=== PATIENT | male | born 1960 | race Caucasian/White ===

== ENCOUNTER 2021-05-05 16:33 | Emergency (ER) | payer OTHER ==
[2021-05-05 17:18] LABS: Absolute Lymphocytes (CBC) 2.2 K/uL (0.7-4.9); Hematocrit 43.4 % (39.6-49.0); Lymphocytes % 23.1 % (15.3-44.8); RBC Red Blood Cell Count 4.56 M/uL (4.33-5.43)
[2021-05-05 17:30] LABS: BUN Blood Urea Nitrogen 18 mg/dL (7-18); Bicarbonate 30 mmol/L (21-32); Glucose Level 104 mg/dL (74-106); Magnesium 2.2 mg/dL (1.8-2.4); NT PRO-BNP 40 pg/mL (<125); Potassium 3.6 mmol/L (3.5-5.1); Sodium Level 141 mmol/L (136-145); Troponin (Emerg Dept Use Only) < 0.02 ng/mL (0.0-0.045)
--- NOTE | 2021-05-05 17:37 | RAD REPORT ---
EXAM DESCRIPTION: John Single View05/05/2021 5:23 pm CLINICAL HISTORY: Palpitations COMPARISON: 2011 FINDINGS: The lungs appear clear of acute infiltrate. The heart is normal size IMPRESSION: No acute abnormalities displayed
--- NOTE | 2021-05-05 17:59 | ER ---
Nurse's Notes [facility] Name: Ponce Morgan Age: 61 yrs Sex: Male : 1960 Arrival Date: 05/05/2021 Time: 16:34 Bed 13 Private MD: Diagnosis: Palpitations Presentation: 05/05 16:40 Chief complaint: EMS states: pt feeling a fluttering in chest while sitting at work. 6 complains of no pain or sob. 16:40 Method Of Arrival: EMS: [facility] 16:40 Coronavirus screen: Vaccine status: Patient reports receiving the 1st dose of the Covid jh6 vaccine. Client denies travel out of the [place] in the last 14 days. At this time, the client does not indicate any symptoms associated with coronavirus-19. Ebola Screen: Patient negative for fever greater than or equal to 101.5 degrees Fahrenheit, and additional compatible Ebola Virus Disease symptoms Patient denies exposure to infectious person. Patient denies travel to an Ebola-affected area in the 21 days before illness onset. No symptoms or risks identified at this time. Initial Sepsis Screen: Does the patient meet any 2 criteria? No. Patient's initial sepsis screen is negative. Does the patient have a suspected source of infection? No. Patient's initial sepsis screen is negative. Risk Assessment: Do you want to hurt yourself or someone else? Patient reports no desire to harm self or others. Onset of symptoms was May 05, 2021. 16:40 Acuity: SHANTELL 2 [facility] Triage Assessment: 17:04 General: Appears in no apparent distress. comfortable, well groomed, well developed, [facility] well nourished, Behavior is calm, cooperative. Pain: Denies pain. Neuro: No deficits noted. Cardiovascular: Reports palpitations. Respiratory: No deficits noted. Historical: - Allergies: 17:06 No Known Allergies; [facility] - PMHx: 17:06 Angina pectoris; [facility] - Immunization history:: Adult Immunizations up to date. - Family history:: not pertinent. - Social history:: Smoking status: Patient denies any tobacco usage or history of. - Hospitalizations: : No recent hospitalization is reported. Screenin:05 Abuse screen: Denies threats or abuse. Nutritional screening: No deficits noted. [facility] Tuberculosis screening: No symptoms or risk factors identified. Fall Risk None identified. Assessment: 17:04 General: Appears in no apparent distress. comfortable, Behavior is calm, cooperative. jh6 Pain: Denies pain. Cardiovascular: Reports palpitations. 18:00 Reassessment: Patient and/or family updated on plan of care and expected duration. Pain jh6 level reassessed. Patient is alert, oriented x 3, equal unlabored respirations, skin warm/dry/pink. 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 pt given copies of ekg from [place] and copies of labs collected today. pt has no complaints at this time. Patient denies pain at this time. Vital Signs: 16:40 BP 124 / 62; Pulse 70; Resp 17; Temp 97.8(O); Pulse Ox 100% ; Weight 106.59 kg; Height jh6 6 ft. 0 in. (182.88 cm); Pain 0/10; 18:00 BP 120 / 65; Pulse 64; Resp 18; Temp 97.7(O); Pulse Ox 100% ; Pain 0/10; jh6 16:40 Body Mass Index 31.87 (106.59 kg, 182.88 cm) jh6 Vitals: 18:00 Cardiac Rhythm Assessment Regular Sinus rhythm. jh6 ED Course: 16:34 Patient arrived in ED. ds1 16:36 Azucena Peoples, RN is Primary Nurse. jh6 16:40 Vasyl Merida MD is Attending Physician. rn 17:04 Triage completed. jh6 17:04 Arm band placed on right wrist. jh6 17:05 No provider procedures requiring assistance completed. Initial lab(s) drawn, EKG done, jh6 by ED staff, reviewed by Vasyl Merida MD. Inserted saline lock: 20 gauge in right antecubital area, using aseptic technique. 17:23 XRAY Chest (1 view) In Process Unspecified. EDMS 17:27 Bed in low position. Call light in reach. Side rails up X 1. jh6 17:58 Anette Espinoza MD is Referral Physician. rn 18:20 IV discontinued, intact, bleeding controlled, No redness/swelling at site. Pressure jh6 dressing applied. Administered Medications: No medications were administered Outcome: 17:58 Discharge ordered by . rn 18:33 Discharged to home ambulatory. jh6 18:33 Condition: improved 18:33 Discharge instructions given to patient, Instructed on discharge instructions, follow up and referral plans. Demonstrated understanding of instructions, follow-up care. 18:37 Patient left the ED. jh6 Signatures: Dispatcher [employer] JULIÁN Brar, Emily dsVasyl Powell MD MD rn Hastedt, Jennifer, RN RN jh6
--- NOTE | 2021-05-05 17:59 | EDPHYS ---
Physician Documentation [facility] Name: Ponce Morgan Age: 61 yrs Sex: Male : 1960 Arrival Date: 05/05/2021 Time: 16:34 Bed 13 Private MD: ED Physician Vasyl Merida HPI: 05/05 16:49 This 61 yrs old Male presents to ER via Unassigned with complaints of Palpitations. rn 16:49 The patient presents with a history of irregular heart beat. Context: The symptoms rn occur at rest. Onset: The symptoms/episode began/occurred today. Duration: The patient or guardian reports multiple episodes, that are intermittent. Modifying factors: The symptoms are aggravated by nothing. The symptoms are alleviated by nothing. Associated signs and symptoms: Pertinent negatives: anxiety, chest pain, cough, fever, lightheadedness, nausea, SOB, syncope, near-syncope, unusual stressors, vertigo, vomiting. Severity of symptoms: At their worst the symptoms were mild in the emergency department the symptoms are unchanged. The patient has experienced similar episodes in the past. The patient has been recently seen by a physician:. Patient reports intermittent palpitations that began earlier today, seems like maybe getting better, has been happening over the last 2 hours. Has happened several times before but would go away within 10 minutes or so. Recently seen by [facility] with a negative stress test. Denies any recent medication changes. Does not take any ftrp-[id number]-[id number] supplements. No diet changes. Denies any chest pain or shortness of breath. No syncope. Denies recent illness.. Historical: - Allergies: 17:06 No Known Allergies; 6 - PMHx: 17:06 Angina pectoris; [facility] - Immunization history:: Adult Immunizations up to date. - Family history:: not pertinent. - Social history:: Smoking status: Patient denies any tobacco usage or history of. - Hospitalizations: : No recent hospitalization is reported. ROS: 16:49 Constitutional: Negative for fever, chills, and weight loss, Eyes: Negative for injury, rn pain, redness, and discharge, Neck: Negative for injury, pain, and swelling, Cardiovascular: Positive for palpitations Respiratory: Negative for shortness of breath, cough, wheezing, and pleuritic chest pain, Abdomen/GI: Negative for abdominal pain, nausea, vomiting, diarrhea, and constipation, Back: Negative for injury and pain, MS/Extremity: Negative for injury and deformity, Skin: Negative for injury, rash, and discoloration, Neuro: Negative for headache, weakness, numbness, tingling, and seizure. Exam: 16:49 Constitutional: This is a well developed, well nourished patient who is awake, alert, rn and in no acute distress. Head/Face: Normocephalic, atraumatic. Eyes: Periorbital areas with no swelling, redness, or edema. Cardiovascular: Regular rate and rhythm. No pulse deficits. Respiratory: No increased work of breathing, no retractions or nasal flaring. Abdomen/GI: Soft, non-tender Skin: Warm, dry MS/ Extremity: Pulses equal, no cyanosis Neuro: Awake and alert, GCS 15 Vital Signs: 16:40 BP 124 / 62; Pulse 70; Resp 17; Temp 97.8(O); Pulse Ox 100% ; Weight 106.59 kg; Height jh6 6 ft. 0 in. (182.88 cm); Pain 0/10; 18:00 BP 120 / 65; Pulse 64; Resp 18; Temp 97.7(O); Pulse Ox 100% ; Pain 0/10; jh6 16:40 Body Mass Index 31.87 (106.59 kg, 182.88 cm) 6 MDM: 16:40 Patient medically screened. rn 17:55 Differential diagnosis: arrythmia, dehydration, stress disorder, PACs. Data reviewed: rn vital signs, nurses notes, lab test result(s), EKG, radiologic studies, plain films, and as a result, I will discharge patient. Counseling: I had a detailed discussion with the patient and/or guardian regarding: the historical points, exam findings, and any diagnostic results supporting the discharge/admit diagnosis, lab results, radiology results, the need for outpatient follow up, to return to the emergency department if symptoms worsen or persist or if there are any questions or concerns that arise at home. Response to treatment: the patient's symptoms have markedly improved after treatment, and as a result, I will discharge patient. Special discussion: I discussed with the patient/guardian in detail that at this point there is no indication for admission to the hospital. It is understood, however, that if the symptoms persist or worsen the patient needs to return immediately for re-evaluation. Based on the history and exam findings, there is no indication for further emergent testing or inpatient evaluation. I discussed with the patient/guardian the need to see the [facility] for further evaluation of the symptoms. I discussed with the patient/guardian the need to see the primary care provider for further evaluation of the symptoms. ED course: No acute findings in blood work here. ECG here does not show extra beats. monitor car operator shows occasional PACs but not as often as earlier reported. Patient recently with a cardiac evaluation with negative stress test. Will discharge home with cardiology and PCP follow-up for further evaluation and possible Holter monitor. Return precautions given and understood.. 05/05 16:41 Order name: Basic Metabolic Panel; Complete Time: 17:32 rn 05/05 16:41 Order name: CBC with Diff; Complete Time: 17:32 rn 05/05 16:41 Order name: Magnesium; Complete Time: 17:32 rn 05/05 16:41 Order name: NT PRO-BNP; Complete Time: 17:32 rn 05/05 16:41 Order name: Troponin (emerg Dept Use Only); Complete Time: 17:32 rn 05/05 16:41 Order name: XRAY Chest (1 view); Complete Time: 17:55 rn 05/05 16:41 Order name: EKG; Complete Time: 16:42 rn 05/05 16:41 Order name: Cardiac monitoring; Complete Time: 18:17 rn 05/05 16:41 Order name: EKG - Nurse/Tech; Complete Time: 18:17 rn 05/05 16:41 Order name: IV Saline Lock; Complete Time: 18:17 rn 05/05 16:41 Order name: Labs collected and sent; Complete Time: 18:17 rn 05/05 16:41 Order name: O2 Per Protocol; Complete Time: 18:17 rn 05/05 16:41 Order name: O2 Sat Monitoring; Complete Time: 18:17 rn Administered Medications: No medications were administered Disposition Summary: 05/05/21 17:58 Discharge Ordered Location: Home rn Problem: new rn Symptoms: have improved rn Condition: Stable rn Diagnosis - Palpitations rn Followup: rn - With: Anette Espinoza MD - When: 2 - 3 days - Reason: Recheck today's complaints, Re-evaluation by your physician Discharge Instructions: - Discharge Summary Sheet rn - Palpitations rn Forms: - Medication Reconciliation Form rn - Thank You Letter rn - Antibiotic sports management internship - Prescription Opioid Use rn Signatures: Dispatcher [employer] Vasyl Gaines MD MD rn Hastedt, Jennifer, RN RN jh6
[2021-05-05 18:46] VITALS: O2SAT 100
[2021-05-05 18:47] VITALS: BP 120/65; TEMP 97.7
== END 2021-05-05 18:37 | disposition home or self-care (01) ==
LOC: ER 16:33
DX: R00.2 Palpitations (principal)
CPT/HCPCS: 36415; 71045; 80048; 83735; 83880; 84484; 85025; 93005; 99284